=== PATIENT | male | born 1975 | race American Indian/Alaskan Native ===

== ENCOUNTER 2021-09-11 14:33 | Emergency (ER) | payer SELFPAY ==
--- NOTE | 2021-09-11 15:25 | Emergency Department Report ---
ED General Adult HPI - General Chief complaint: High BP Stated complaint: My blood pressure is high, and I need a medication refill Time Seen by Provider: 09/11/21 15:11 Source: patient, RN notes reviewed Mode of arrival: Ambulatory Limitations: No Limitations - History of Present Illness Initial comments: The patient is a pleasant 46-year-old gentleman. He is not known to myself previously. He has a history of chronic tobacco use, as well as hypertension. Secondary to not having insurance, he has run out of his lisinopril HCTZ combination medication. He presents today asking for a refill. He states that he is going to have a job with insurance as of next month. He reports that he has been on this medication for 8 years. He states that he knows that his blood pressure is high, because "my head feels funny." He denies sudden or thunderclap headache, chest pain, abdominal pain, nausea, vomiting and diarrhea. In addition, the patient specifically denies physical pain, specifically arm pain to myself. He is also motivated to stop smoking, and is interested in nicotine gum. He states he will follow up with a local primary care doctor. He last had laboratory studies performed 4 months ago. Improves with: none Worsens with: none Associated Symptoms: denies other symptoms - Related Data Previous Rx's Medication Instructions Recorded Last Taken Type Lisinopril/Hydrochlorothiazide 1 tab PO QDAY #30 tab 09/11/21 Unknown Rx [Zestoretic 20-25 mg] Nicotine Polacrilex [Nicotine Gum] 4 mg BC PRN PRN #30 gum 09/11/21 Unknown Rx Allergies Allergy/AdvReac Type Severity Reaction Status Date / Time No Known Allergies Allergy Verified 09/11/21 14:47 ED Review of Systems ROS: Stated complaint: ABDOMINAL PAIN Other details as noted in HPI Comment: All other systems reviewed and negative ED Past Medical Hx - Medications Home Medications: Home Medications Medication Instructions Recorded Confirmed Last Taken Type Lisinopril/Hydrochlorothiazide 1 tab PO QDAY #30 tab 09/11/21 Unknown Rx [Zestoretic 20-25 mg] Nicotine Polacrilex [Nicotine Gum] 4 mg BC PRN PRN #30 gum 09/11/21 Unknown Rx ED Physical Exam - General Limitations: No Limitations General appearance: alert, in no apparent distress - Head Head exam: Present: atraumatic, normocephalic - Eye Eye exam: Present: normal appearance, PERRL, EOMI. Absent: nystagmus - ENT ENT exam: Present: normal exam, normal orophraynx, mucous membranes moist, normal external ear exam - Neck Neck exam: Present: normal inspection, full ROM. Absent: tenderness, meningismus - Respiratory Respiratory exam: Present: normal lung sounds bilaterally. Absent: respiratory distress, wheezes, rales, rhonchi, stridor, decreased breath sounds - Cardiovascular Cardiovascular Exam: Present: regular rate, normal rhythm, normal heart sounds. Absent: bradycardia, tachycardia, irregular rhythm, systolic murmur, diastolic murmur, rubs, gallop - GI/Abdominal GI/Abdominal exam: Present: soft, normal bowel sounds. Absent: distended, tenderness, guarding, rebound, rigid, pulsatile mass - Rectal Rectal exam: Present: deferred - Extremities Exam Extremities exam: Present: normal inspection, full ROM, other (2+ pulses noted in the bilateral upper and lower extremities. There is no palpable cord. negative Homans sign. Muscular compartments are soft. The pelvis is stable.). Absent: pedal edema, calf tenderness - Back Exam Back exam: Present: normal inspection, full ROM. Absent: tenderness, CVA tenderness (R), CVA tenderness (L), paraspinal tenderness, vertebral tenderness - Neurological Exam Neurological exam: Present: alert, oriented X3, normal gait, other (No facial droop. Tongue midline. Extraocular movements intact bilaterally. Facial sensation intact to light touch in V1, V2, V3 distribution bilaterally. 5 and a 5 strength in 4 extremities. Sensation intact to light touch in 4 extremities.). Absent: motor sensory deficit - Psychiatric Psychiatric exam: Present: normal affect, normal mood - Skin Skin exam: Present: warm, dry, intact, normal color. Absent: rash ED Course Vital Signs 09/11/21 14:46 Temperature 98.8 F Pulse Rate 77 Respiratory 18 Rate Blood Pressure 193/120 [Left] O2 Sat by Pulse 100 Oximetry ED Medical Decision Making - Lab Data Result diagrams: 09/11/21 15:54 Vital Signs 09/11/21 14:46 Temperature 98.8 F Pulse Rate 77 Respiratory 18 Rate Blood Pressure 193/120 [Left] O2 Sat by Pulse 100 Oximetry - Medical Decision Making Differential diagnosis, including but not limited to: Medication refill, chronic hypertension, encounter for tobacco cessation, medical screening examination Assessment and plan: 46-year-old gentleman, who was afebrile, with reassuring vital signs, with exception of known chronic hypertension, present for 8 years, who recently been out of his medications, and is requesting a refill on his lisinopril HCTZ combination medication. Nursing documentation is reviewed and appreciated, but to me, the patient specifically denies headache, neck pain, chest pain, abdominal pain, and extremity pain. When I walked into the room to examine the patient, he is on a cellular phone, a nd in no acute distress. Renal function within normal limits at this time. Please reference the [employer] clinical policy on asymptomatic hypertension. Patient also interested in tobacco cessation, spent 10 minutes discussing tobacco cessation with the patient, and he is agreeable to start nicotine gum. He will be given a 1 month refill on his lisinopril HCTZ combination medication, he will be discharged with nicotine gum, and referred to local outpatient [facility] care. Return precautions reviewed. Patient in no acute distress Critical care attestation.: If time is entered above; I have spent that time in minutes in the direct care of this critically ill patient, excluding procedure time. ED Disposition Clinical Impression: Encounter for tobacco use cessation counseling, Hypertension, Medication refill Disposition: 01 HOME / SELF CARE / HOMELESS Is pt being admited?: No Does the pt Need Aspirin: No Condition: Good Instructions: Hypertension (ED), Hypertension, Adult, Steps to Quit Smoking Additional Instructions: Please take the blood pressure medication as directed. Use the nicotine gum as needed/directed. Discontinue tobacco smoking. Follow-up with a primary care doctor within the next month. Long-term complications of hypertension, nicotine use are risk factors for stroke, heart attack, disability, paralysis, and loss of quality of life. [facility] is a local sliding scale medical clinic. Dr. Shade Alanis is a local primary care doctor. Please return to the emergency room right away with new pain, worsened pain, migration of pain, projectile vomiting, change in mental status, confusion, inability tolerate liquid feeds, new, worsened or different symptoms not present on the initial emergency room evaluation. Referrals: AMY ALANIS MD [Staff Physician] - 3-5 Days [facility] [Provider Group] - 3-5 Days
[2021-09-11 16:33] LABS: BUN/Creatinine Ratio 24; Blood Urea Nitrogen 19 mg/dL (9-20); Hemolysis Index 4
[2021-09-11] MEDS ORDERED: hydroCHLOROthiazide 25 MG TAB PO ONE (17:13)
[2021-09-11] MEDS ORDERED: LISINOPRIL 20 MG TAB PO ONE (17:13)
[2021-09-11 17:31] VITALS: BP 190/120
== END 2021-09-11 17:50 | disposition home or self-care (01) ==
LOC: ED 14:33
DX: I10 Essential (primary) hypertension (principal); Z76.0 Encounter for issue of repeat prescription; F17.200 Nicotine dependence, unspecified, uncomplicated
CPT/HCPCS: 36415; 80048; 99283

== ENCOUNTER 2021-12-30 12:51 | Emergency (ER) | payer SELFPAY ==
[2021-12-30 13:34] VITALS: BP 154/102
--- NOTE | 2021-12-30 14:02 | Emergency Department Report ---
ED ENT HPI - General Chief complaint: Dental/Oral Stated complaint: HTN, DENTAL PAIN Time Seen by Provider: 12/30/21 13:18 Source: patient Mode of arrival: Ambulatory Limitations: No Limitations - History of Present Illness Initial comments: Complaint: "I need some antibiotics for my tooth. My blood pressure is catailna high." HPI: Is a 46-year-old male with history of hypertension presents with dental pain at tooth #30. Right lower jawline. No associated facial swelling. Denies trouble with swallowing. Denies trouble breathing. Denies fever. 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 He normally takes lisinopril 20/hydrochlorothiazide 25 MD complaint: tooth pain Location: tooth # (#30) Severity: mild Quality: aching Consistency: constant Improves with: none Worsens with: none Context- Dental: history of dental caries - Related Data Previous Rx's Medication Instructions Recorded Last Taken Type Lisinopril/Hydrochlorothiazide 1 tab PO QDAY #30 tab 09/11/21 Unknown Rx [Zestoretic 20-25 mg] Nicotine Polacrilex [Nicotine Gum] 4 mg BC PRN PRN #30 gum 09/11/21 Unknown Rx Lisinopril/Hydrochlorothiazide 1 tab PO QDAY 90 Days #90 tab 12/30/21 Unknown Rx [Zestoretic 20-25 mg] Penicillin V Potassium 500 mg PO Q6H #40 12/30/21 Unknown Rx Allergies Allergy/AdvReac Type Severity Reaction Status Date / Time No Known Allergies Allergy Verified 12/30/21 13:32 ED Dental HPI - General Chief complaint: Dental/Oral Stated complaint: HTN, DENTAL PAIN Time Seen by Provider: 12/30/21 13:18 Source: patient Mode of arrival: Ambulatory Limitations: No Limitations - Related Data Previous Rx's Medication Instructions Recorded Last Taken Type Lisinopril/Hydrochlorothiazide 1 tab PO QDAY #30 tab 09/11/21 Unknown Rx [Zestoretic 20-25 mg] Nicotine Polacrilex [Nicotine Gum] 4 mg BC PRN PRN #30 gum 09/11/21 Unknown Rx Lisinopril/Hydrochlorothiazide 1 tab PO QDAY 90 Days #90 tab 12/30/21 Unknown Rx [Zestoretic 20-25 mg] Penicillin V Potassium 500 mg PO Q6H #40 12/30/21 Unknown Rx Allergies Allergy/AdvReac Type Severity Reaction Status Date / Time No Known Allergies Allergy Verified 12/30/21 13:32 ED Review of Systems ROS: Stated complaint: HTN, DENTAL PAIN Other details as noted in HPI Comment: All other systems reviewed and negative Constitutional: denies: fever, malaise Eyes: denies: as per HPI ENT: dental pain. denies: ear pain, throat pain Respiratory: denies: cough, shortness of breath Cardiovascular: denies: chest pain Gastrointestinal: denies: abdominal pain, nausea, vomiting Skin: denies: rash, lesions ED Past Medical Hx - Past Medical History Previous Medical History?: Yes Hx Hypertension: Yes - Surgical History Past Surgical History?: No - Family History Family history: hypertension - Social History Smoking Status: Current Every Day Smoker Substance Use Type: None - Medications Home Medications: Home Medications Medication Instructions Recorded Confirmed Last Taken Type Lisinopril/Hydrochlorothiazide 1 tab PO QDAY #30 tab 09/11/21 12/30/21 Unknown Rx [Zestoretic 20-25 mg] Nicotine Polacrilex [Nicotine Gum] 4 mg BC PRN PRN #30 gum 09/11/21 12/30/21 Unknown Rx Lisinopril/Hydrochlorothiazide 1 tab PO QDAY 90 Days #90 tab 12/30/21 Unknown Rx [Zestoretic 20-25 mg] Penicillin V Potassium 500 mg PO Q6H #40 12/30/21 Unknown Rx ED Physical Exam - General Limitations: No Limitations General appearance: alert, in no apparent distress - Head Head exam: Present: atraumatic, normocephalic - Eye Eye exam: Present: normal appearance - ENT ENT exam: Present: mucous membranes moist, other (Large area of tooth decay tooth #30 no facial swelling no gum swelling) - Neck Neck exam: Present: normal inspection, full ROM - Respiratory Respiratory exam: Present: normal lung sounds bilaterally. Absent: respiratory distress - Cardiovascular Cardiovascular Exam: Present: regular rate, normal rhythm. Absent: systolic murmur, diastolic murmur, rubs, gallop - GI/Abdominal GI/Abdominal exam: Present: soft, normal bowel sounds - Rectal Rectal exam: Present: deferred - Extremities Exam Extremities exam: Present: normal inspection - Back Exam Back exam: Present: normal inspection - Neurological Exam Neurological exam: Present: alert, oriented X3 - Psychiatric Psychiatric exam: Present: normal affect, normal mood - Skin Skin exam: Present: warm, dry, intact, normal color. Absent: rash ED Course Vital Signs 12/30/21 12/30/21 12/30/21 13:16 13:28 13:31 Temperature 98.4 F 98.4 F 98.4 F Pulse Rate 106 H 83 77 Respiratory 16 20 20 Rate Blood Pressure 142/89 Blood Pressure 154/105 128/77 [Left] O2 Sat by Pulse 99 100 100 Oximetry 12/30/21 13:33 Temperature 98.4 F Pulse Rate 94 H Respiratory 20 Rate Blood Pressure Blood Pressure 154/102 [Left] O2 Sat by Pulse 100 Oximetry ED Medical Decision Making - Medical Decision Making Infected dental caries tooth #30 prescribed penicillin Asymptomatic hypertension: Prescribed 90-day supply of lisinopril 20/hydrochlorothiazide 25 Critical care attestation.: If time is entered above; I have spent that time in minutes in the direct care of this critically ill patient, excluding procedure time. ED Disposition Clinical Impression: Infected dental caries, Hypertension Disposition: 01 HOME / SELF CARE / HOMELESS Is pt being admited?: No Does the pt Need Aspirin: No Condition: Stable Instructions: Hypertension (ED), Dental Abscess, [id number] Prescriptions: Penicillin V Potassium 500 mg PO Q6H #40 Lisinopril/Hydrochlorothiazide [Zestoretic 20-25 mg] 1 tab PO QDAY 90 Days #90 tab Referrals: [facility] [Outside] - 3-5 Days
== END 2021-12-30 14:10 | disposition home or self-care (01) ==
LOC: ED 12:51
DX: K02.9 Dental caries, unspecified (principal); I10 Essential (primary) hypertension; F17.200 Nicotine dependence, unspecified, uncomplicated; Z79.899 Other long term (current) drug therapy
CPT/HCPCS: 99282

== ENCOUNTER 2022-05-04 07:23 | Emergency (ER) | payer SELFPAY ==
--- NOTE | 2022-05-04 09:45 | Emergency Department Report ---
ED General Adult HPI - General Chief complaint: High BP Stated complaint: HEADACHE/SWOLLEN FEET Time Seen by Provider: 05/04/22 09:10 Source: patient Mode of arrival: Ambulatory Limitations: No Limitations - History of Present Illness Initial comments: 47-year-old male with a history of high blood pressure who presents with wanting a refill of his lisinopril/hydrochlorothiazide 20/25 mg that he ran out of about a week ago. Patient reported that he has a new insurance but waiting for time for it to kick in. He also reports some generalized body discomfort. Patient states he only needs a refill but did not want any labs to be drawn. I insisted that we need to see is kidney function before the medication can be refilled considering that the hydrochlorothiazide aspect will affect his kidney function. Patient reluctantly agreed to have the basic labs drawn. No other modifying or associated factors reported. - Related Data Previous Rx's Medication Instructions Recorded Last Taken Type Nicotine Polacrilex [Nicotine Gum] 4 mg BC PRN PRN #30 gum 09/11/21 Unknown Rx Lisinopril/Hydrochlorothiazide 1 tab PO QDAY 90 Days #90 tab 12/30/21 Unknown Rx [Zestoretic 20-25 mg] Penicillin V Potassium 500 mg PO Q6H #40 12/30/21 Unknown Rx Lisinopril/Hydrochlorothiazide 1 tab PO QDAY 30 Days #30 tab 05/04/22 Unknown Rx [Zestoretic 20-25 mg] Allergies Allergy/AdvReac Type Severity Reaction Status Date / Time No Known Allergies Allergy Verified 12/30/21 13:32 ED Review of Systems ROS: Stated complaint: HEADACHE/SWOLLEN FEET Other details as noted in HPI Comment: All other systems reviewed and negative Cardiovascular: other (hypertensive urgency ) Musculoskeletal: myalgia ED Past Medical Hx - Past Medical History Previous Medical History?: Yes Hx Hypertension: Yes - Social History Smoking Status: Current Every Day Smoker Substance Use Type: None - Medications Home Medications: Home Medications Medication Instructions Recorded Confirmed Last Taken Type Nicotine Polacrilex [Nicotine Gum] 4 mg BC PRN PRN #30 gum 09/11/21 12/30/21 Unknown Rx Lisinopril/Hydrochlorothiazide 1 tab PO QDAY 90 Days #90 tab 12/30/21 Unknown Rx [Zestoretic 20-25 mg] Penicillin V Potassium 500 mg PO Q6H #40 12/30/21 Unknown Rx Lisinopril/Hydrochlorothiazide 1 tab PO QDAY 30 Days #30 tab 05/04/22 Unknown Rx [Zestoretic 20-25 mg] ED Physical Exam - General Limitations: No Limitations General appearance: alert, in no apparent distress - Head Head exam: Present: normal inspection - Eye Eye exam: Present: normal appearance Pupils: Present: normal accommodation - ENT ENT exam: Present: normal exam, normal orophraynx, mucous membranes dry - Neck Neck exam: Present: normal inspection, full ROM. Absent: tenderness - Respiratory Respiratory exam: Present: normal lung sounds bilaterally. Absent: respiratory distress, accessory muscle use - Cardiovascular Cardiovascular Exam: Present: regular rate, normal rhythm, normal heart sounds - GI/Abdominal GI/Abdominal exam: Present: soft, normal bowel sounds. Absent: distended, tenderness - Extremities Exam Extremities exam: Present: normal inspection, normal capillary refill. Absent: tenderness, pedal edema - Back Exam Back exam: Absent: tenderness - Neurological Exam Neurological exam: Present: alert, oriented X3 - Psychiatric Psychiatric exam: Present: normal affect, normal mood - Skin Skin exam: Present: warm, normal color ED Course Vital Signs 05/04/22 05/04/22 08:13 10:24 Temperature 98.9 F Pulse Rate 81 72 Respiratory 18 Rate Blood Pressure 172/116 Blood Pressure 182/116 [Left] O2 Sat by Pulse 99 Oximetry ED Medical Decision Making - Lab Data Result diagrams: 05/04/22 10:06 05/04/22 10:06 - Medical Decision Making Here to have his antihypertensive medications refill-- currently on HC TZ/Lisinopril 25/20 mg and because this could impact his kidney function plus his c/o body aches will go ahead and order routine labs including CBC, CMP, UA, UDS and Thyroid profile for any infectious process or electrolytes abnormality as a stressor-- In the meantime will go ahead and given Labetalol 20 mg IV x 1 to treat his current hypertensive urgency-- Lab reviewed to be unremarkable except UDS noted with THC--patient reassured and assigned a primary doctor to follow-up with Critical care attestation.: If time is entered above; I have spent that time in minutes in the direct care of this critically ill patient, excluding procedure time. ED Disposition Clinical Impression: Hypertensive urgency, Encounter for medication refill Disposition: HOME / SELF CARE / HOMELESS Is pt being admited?: No Does the pt Need Aspirin: No Condition: Stable Instructions: Hypertension, Adult, [id number], Managing Your Hypertension Additional Instructions: It is important that you follow the printed instruction Take your antihypertensive medication hydrochlorothiazide/lisinopril as prescribed to continue to help your symptoms It is also equally important that you call and follow-up with your primary doctor assigned to you in the next 1 to 2 weeks for progress Please do not hesitate to call or return to emergency room if your symptoms worsen Prescriptions: Lisinopril/Hydrochlorothiazide [Zestoretic 20-25 mg] 1 tab PO QDAY 30 Days #30 tab Time of Disposition: 12:36
[2022-05-04 10:42] LABS: Basophils # (Auto) 0.1 K/mm3 (0.0-0.1); Eosinophils # (Auto) 0.1 K/mm3 (0.0-0.4); Eosinophils % (Auto) 1.4 % (0.0-4.3); Hematocrit 44.1 % (35.5-45.6); Hemoglobin 14.2 gm/dl (11.8-15.2); Lymphocytes % (Auto) 34.4 % (13.4-35.0); Mean Corpuscular HGB Conc 32 % (32-34); Mean Corpuscular Volume 83 fl (84-94); Monocytes # (Auto) 0.5 K/mm3 (0.0-0.8); Monocytes % (Auto) 8.6 % (0.0-7.3); Platelet Count 207 K/mm3 (140-440); Red Blood Count 5.32 M/mm3 (3.65-5.03); Red Cell Distribution Width 14.1 % (13.2-15.2)
[2022-05-04 10:58] LABS: Alanine Aminotransferase 19 units/L (7-56); Albumin 4.3 g/dL (3.9-5); BUN/Creatinine Ratio 18; Blood Urea Nitrogen 18 mg/dL (9-20); Calcium 9.1 mg/dL (8.4-10.2); Hemolysis Index 2
[2022-05-04 11:14] LABS: Free T4 (Free Thyroxine) 1.04 ng/dL (0.76-1.46)
[2022-05-04 11:38] LABS: Amphetamine Screen,Urine Negative; Benzodiazepines Screen,Urine Negative; Cocaine Screen,Urine Negative; Methadone Screen,Urine Negative; Opiate Screen,Urine Negative
[2022-05-04 11:50] LABS: Bacteria,Urine 1+ /HPF (Negative); Mucus,Urine FEW /HPF; WBC,Urine < 1.0 /HPF (0.0-6.0)
[2022-05-04 11:55] LABS: Cannabinoid Screen,Urine Positive
[2022-05-04 12:01] LABS: Bilirubin,Urine 1+ (Negative); Blood,Urine Negative (Negative); Color,Urine Yellow (Yellow); Ictotest,Urine Negative (Negative)
[2022-05-04 13:03] VITALS: BP 162/85
== END 2022-05-04 13:05 | disposition home or self-care (01) ==
LOC: ED 07:23
DX: I16.0 Hypertensive urgency (principal); Z76.0 Encounter for issue of repeat prescription; F17.200 Nicotine dependence, unspecified, uncomplicated; Z79.899 Other long term (current) drug therapy
CPT/HCPCS: 36415; 80053; 80307; 81001; 84439; 84443; 85025; 96374; 99283; J3490